=== PATIENT | female | born 2000 | race Caucasian/White ===

== ENCOUNTER 2025-05-10 04:37 | Emergency (ER) | payer OTHER ==
[~2025-05-10] VITALS: Ht 162.6 cm; Wt 72.6 kg
[2025-05-10] MEDS ORDERED: ACETAMINOPHEN 325 MG TABLET PO ONE (05:00)
[2025-05-10] MEDS ORDERED: ACETAMINOPHEN ES 500 MG TABLET ONE (05:19)
[2025-05-10] MEDS: ACETAMINOPHEN ES 500 MG TABLET PO ONE (05:26)
[2025-05-10 06:24] LABS: APPEARANCE,URINE CLEAR (CLEAR); BLOOD, URINE NEGATIVE Ery/uL (NEGATIVE); LEUKOCYTE ESTERASE ,URINE 1+ (NEGATIVE); NITRITE, URINE NEGATIVE (NEGATIVE); UGLUCOSE NEGATIVE (NEGATIVE)
[2025-05-10 06:26] LABS: PREGNANCY TEST URINE QUAL NEGATIVE (NEGATIVE)
[2025-05-10 06:29] LABS: ADD URINE CULTURE YES
[2025-05-10] MEDS ORDERED: CEPH-570 PO (07:18)
[2025-05-10 07:51] VITALS: BP 118/88; TEMP 98.8; O2SAT 99
== END 2025-05-10 07:51 | disposition home or self-care (01) ==
LOC: ER 04:37
DX: J02.9 Acute pharyngitis, unspecified (principal); R30.0 Dysuria; Z20.822 Contact with and (suspected) exposure to COVID-19
CPT/HCPCS: 81001; 84703-TC; 86403-TC; 87070-TC; 87086-TC